=== PATIENT | male | born 2000 | race Caucasian/White ===

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

== ENCOUNTER 2019-11-02 21:46 | Emergency (ER) | payer OTHER ==
--- NOTE | 2019-11-02 22:16 | ED Physician Documentation ---
History of Present Illness - Stated complaint Stated Complaint: RT ARM PX - Chief complaint Chief Complaint: Trauma Ext - History obtained from History obtained from: Patient - Additonal information Additional information: Patient comes emergency department complaining of right elbow pain after [place] skate park. Patient states he was lunging off a jump both times and probably fell about 2 to 3 feet. He states that he had fairly good range of motion at first, but that now, his right elbow seems more stiff and sore, and he has noticed a swollen area around the olecranon process. Patient denies history of prior injury to his elbow. No other injuries tonight. Patient states incident happened around 1900. Review of Systems Ten Systems: 10 systems reviewed and negative Constitutional: reports: Reviewed and negative Eyes: reports: Reviewed and negative Ears: reports: Reviewed and negative Nose: reports: Reviewed and negative Throat: reports: Reviewed and negative Cardiac: reports: Reviewed and negative Respiratory: reports: Reviewed and negative GI: reports: Reviewed and negative : reports: Reviewed and negative Skin: reports: Reviewed and negative Musculoskeletal: reports: Reviewed and negative Neurologic: reports: Reviewed and negative Psychiatric: reports: Reviewed and negative Endocrine: reports: Reviewed and negative Immunocompromised: reports: Reviewed and negative PD PAST MEDICAL HISTORY - Past Medical History Past Medical History: No - Past Surgical History Past Surgical History: No - Present Medications Home Medications: Ambulatory Orders Medication Instructions Recorded Confirmed Ibuprofen [Motrin] 800 mg PO Q8H PRN #30 tablet 12/24/18 Penicillin V Potassium 500 mg PO Q6HR #40 tablet 12/24/18 Hydrocodone/Acetaminophen 1 - 2 each PO Q6H PRN #7 tablet 11/03/19 [Hydrocodon-Acetaminophen 5-325] - Allergies Allergies/Adverse Reactions: Allergies Allergy/AdvReac Type Severity Reaction Status Date / Time No Known Drug Allergies Allergy Verified 11/02/19 21:50 - Social History Does the pt smoke?: No Smoking Status: Never smoker PD ED PE NORMAL - Vitals Vital signs reviewed: Yes - General General: Alert and oriented X 3, No acute distress - HEENT HEENT: Atraumatic, PERRL - Neck Neck: Supple, no meningeal sign - Cardiac Cardiac: Strong equal pulses - Respiratory Respiratory: No respiratory distress - Back Back: No spinal TTP - Derm Derm: Normal color, Warm and dry, No rash - Extremities Extremities: No deformity, Other (Patient has mild effusion of his right elbow and generalized tenderness. No deformity, but range of motion is limited, secondary to pain. Distal pulses intact.) - Neuro Neuro: Alert and oriented X 3 - Psych Psych: Normal mood, Normal affect Results - Vitals Vitals: Vital Signs - 24 hr 11/02/19 11/03/19 21:50 00:55 Temperature 36.5 C Heart Rate 72 69 Respiratory 14 17 Rate Blood Pressure 131/75 H 142/80 H O2 Saturation 98 99 Oxygen O2 Source Room air - Rads (name of study) R elbow xr Radiology: Final report received, EMP read indepedently, See rad report (Effusion, possible occult fracture) CT R elbow Radiology: Final report received, EMP read indepedently, See rad report (Possible subtle radial head fracture.) PD MEDICAL DECISION MAKING - ED course Complexity details: reviewed results, re-evaluated patient, considered differential, d/w patient ED course: Patient was worked up with x-ray series of the elbow which showed No obvious fracture, but a sizable effusion which raise concern for occult fracture. As such, I discussed the situation with the patient and CT scan was ordered for further clarity. This was done and found to show a possible subtle radial head fracture. I did review treatment options for this, and given that the fracture was very minor with no displacement, the patient was placed in a sling. I have discussed with him that literature review suggests that elbow mobility is a major concern with fracture management, and that at this point, the best plan is to have the patient use the sling for support, but be sure to move his elbow frequently through low force range of motion. I have advised him to follow-up with orthopedics within the week to formulate a plan going forward. I have given the patient a work note for adjusted work activities that do not involve the right upper extremity. I have advised him that he should not skate or do any other activities that put him at risk for further injuring the area. Departure - Departure Disposition: 01 Home, Self Care Clinical Impression: Radial head fracture, closed Qualifiers: Encounter type: initial encounter Fracture alignment: nondisplaced Laterality: right Qualified Code(s): S52.124A - Nondisplaced fracture of head of right radius, initial encounter for closed fracture Condition: Stable Instructions: ED Fx Radial Head Follow-Up: Deandre Colon MD [Provider Admit Priv/Credential] - Prescriptions: Hydrocodone/Acetaminophen [Hydrocodon-Acetaminophen 5-325] 1 - 2 each PO Q6H PRN #7 tablet PRN Reason: pain Comments: Your CT scan shows what is most likely very subtle, nondisplaced fracture of the head, or upper portion, of your radius, 1 of the forearm bones. The treatment for this sort of minor fracture is to wear a sling as needed, but to also keep your elbow moving so that you do not develop a frozen elbow. This sort of fracture tends to heal well on its own, but you should avoid any sort of forceful movement or application of force to the elbow. As such, it is best for you to avoid skateboarding or any other activity where you are likely to fall and exert a sudden force on that elbow before it heals. You should exercise avoidance of these activities for at least the next 4 weeks. Please follow-up with orthopedics in the next week for reevaluation. Forms: Activity restrictions Discharge Date/Time: 11/03/19 00:57
--- NOTE | 2019-11-02 23:14 | XRAY Report ---
Reason: trauma/pain/swelling Procedure Date: 11/02/2019 Accession Number: [id number] / [id number] Procedure: XR - Elbow 3 View RT CPT Code: Final Report FULL RESULT: EXAM: RIGHT ELBOW RADIOGRAPHY EXAM DATE: 11/02/2019 11:04 PM. CLINICAL HISTORY: Trauma/pain/swelling. COMPARISON: None. TECHNIQUE: 3 views. FINDINGS: Bones: No acute fracture seen. Joints: No dislocation seen. Joint spaces appear preserved. Large joint effusion. Soft Tissues: Mild soft tissue swelling. IMPRESSION: 1. Large joint effusion. 2. No fracture identified. However, the presence of joint effusion could indicate occult fracture. RADIA
--- NOTE | 2019-11-03 00:30 | CT Report ---
Reason: possible fx on XR Procedure Date: 11/03/2019 Accession Number: [id number] / [id number] Procedure: CT - UPPER EXTREMITY WO - RT CPT Code: Final Report FULL RESULT: EXAM: RIGHT ELBOW CT WITHOUT CONTRAST EXAM DATE: 11/03/2019 12:12 AM. CLINICAL HISTORY: Elbow joint effusion on radiographs. Occult fracture could not be excluded. Pain after injury. COMPARISON: ELBOW 3 VIEW RT 11/02/2019 10:25 PM. TECHNIQUE: Thin-section axial images were acquired of the elbow without contrast. Post-processing: Coronal and sagittal reformats. Other: None. In accordance with CT protocol optimization, one or more of the following dose reduction techniques were utilized for this exam: automated exposure control, adjustment of mA and/or KV based on patient size, or use of iterative reconstructive technique. FINDINGS: Bones: Possible very subtle nondisplaced radial head fracture. No other acute fracture seen. Joints: No dislocation seen. Joint spaces appear intact. Joint effusion is noted. Musculature: Unremarkable. Other: None. IMPRESSION: 1. Possible very subtle nondisplaced radial head fracture. 2. Elbow joint effusion. RADIA
[2019-11-03 00:58] VITALS: BP 142/80
== END 2019-11-03 00:57 | disposition home or self-care (01) ==
LOC: ED 21:46
DX: S52.124A Nondisplaced fracture of head of right radius, initial encounter for closed fracture (principal); V00.131A Fall from skateboard, initial encounter; Y93.51 Activity, roller skating (inline) and skateboarding; Y92.830 Public park as the place of occurrence of the external cause
CPT/HCPCS: 99284